=== PATIENT | female | born 1955 | race Caucasian/White ===

== ENCOUNTER → 2023-12-23 11:25 | Outpatient (REF) | payer MEDICARE, OTHER, SELFPAY | LOC: WDC 11:25 | PROVIDERS: ATTENDING PHYSICIAN Family Medicine | DX: Z12.31 Encounter for screening mammogram for malignant neoplasm of breast (principal) | CPT/HCPCS: 77063; 77067 ==

== ENCOUNTER → 2024-01-09 09:28 | Outpatient (REF) | payer MEDICARE, OTHER, SELFPAY | LOC: RAD 09:28 | PROVIDERS: ATTENDING PHYSICIAN Family Medicine | DX: Z13.820 Encounter for screening for osteoporosis (principal); Z78.0 Asymptomatic menopausal state | CPT/HCPCS: 77080 ==

== ENCOUNTER → 2025-01-11 15:03 | Outpatient (REF) | payer MEDICARE, OTHER, SELFPAY | LOC: WDC 15:03 | PROVIDERS: ATTENDING PHYSICIAN Family Medicine | DX: Z12.31 Encounter for screening mammogram for malignant neoplasm of breast (principal) | CPT/HCPCS: 77063; 77067 ==